=== PATIENT | female | born 1975 | race Caucasian/White ===

== ENCOUNTER → 2024-09-24 14:10 | Outpatient (CLI) | payer OTHER, SELFPAY ==
--- NOTE | 2024-09-24 14:13 | DI.NM.S_ITS ---
PROCEDURE: NM EXERCISE TREADMILL NON NUC COMPARISON: None. INDICATIONS: Personal history of sudden cardiac arrest FINDINGS: Patient exercised per the standard [facility] protocol. Total exercise time was 9 minutes and 1 seconds. Test was terminated secondary to fatigue. Maximal heart rate obtained is 180 bpm which is 105% of maximum range of heart rate. Maximum blood pressure is 210/[place] [address]. JOSEMANUEL -12%. 10.1 METS. No chest pains voiced. No ischemic changes noted. No arrhythmias present. Normal heart rate with hypertensive blood pressure response to exercise. IMPRESSION: 1. Negative exercise treadmill stress test for ischemia. 2. Above average exercise tolerance. Dictated by: Carmine Perera M.D. on 09/24/2024 at 16:58 Approved by: Carmine Perera M.D. on 09/24/2024 at 17:13
== END ==
PROVIDERS: Referring Provider Internal Medicine; Visit Provider Internal Medicine
DX: Z86.74 Personal history of sudden cardiac arrest (principal)
CPT/HCPCS: 93017